=== PATIENT | male | born 1940 | race Caucasian/White ===

== ENCOUNTER 2022-08-21 10:38 | Emergency (ER) | payer MEDICARE ==
[2022-08-21] VITALS (12 sets, daily range): BP systolic 115–159; BP diastolic 64–85
[~2022-08-21] VITALS: Ht 177.8 cm; Wt 106.8 kg
[2022-08-21] MEDS ORDERED: CEPHALEXIN500 MG PO (12:53)
== END 2022-08-21 13:25 | disposition home or self-care (01) ==
LOC: ED 10:38
DX: L03.116 Cellulitis of left lower limb (principal); E11.9 Type 2 diabetes mellitus without complications; J44.9 Chronic obstructive pulmonary disease, unspecified